=== PATIENT | female | born 1940 | race Caucasian/White ===

== ENCOUNTER → 2017-01-16 | Outpatient (CLI) | payer OTHER ==
[~2017-01-16] MED LIST: CELEBREX 200 M200 M1 PO; LISINOPRIL20 MG PO; NEXIUM40 MG PO; VITAMIN D2000 UNI1 PO; ZETIA10 MG PO
== END ==
LOC: RAD 09:12
DX: S09.90XA Unspecified injury of head, initial encounter (principal); M47.896 Other spondylosis, lumbar region; X58.XXXA Exposure to other specified factors, initial encounter; Y93.89 Activity, other specified; Y92.89 Other specified places as the place of occurrence of the external cause; Y99.8 Other external cause status

== ENCOUNTER → 2017-06-03 | Outpatient (CLI) | payer OTHER ==
[~2017-06-03] VITALS: Ht 165.1 cm; Wt 59.4 kg
[~2017-06-03] MED LIST changes: +ASPIR 8181 MG PO; +ASPIR-TRIN325 MG PO; +CILOSTAZOL 100100 M1 PO; +LANSOPRAZOLE30 MG PO; +LIVALO4 MG PO; +PLAVIX 75 MG TA75 M1 PO; +TOPROL XL25 MG PO
--- NOTE | ~2017-06-03 | P ---
[facility] [place] [address] PROCEDURE REPORT Name: NADINE ROSS Room #: REG [facility] Alice#: [id number] Admission: 06/03/17 Attend Phys: Donny Green Discharge: Date of : 38 Report #: [id number] THIS REPORT FOR: //name// CC: Donny Choe DO DATE OF SERVICE: 06/03/2017 PROCEDURE PERFORMED: Flexible sigmoidoscopy with biopsies and APC cautery. HISTORY OF PRESENT ILLNESS: The patient is a 76-year-old female who underwent a colonoscopy by myself in 2014, in which a large sessile polyp was noted in the upper rectum, which came back as a tubular adenoma. She has now had repeat flexible sigmoidoscopy every 6 months because of recurrent adenomatous tissue on biopsies from the previous polypectomy site. Of note, the site was tattooed and it is at 20 cm from the anal canal. Plan is for repeat flexible sigmoidoscopy today with APC cautery. DESCRIPTION OF PROCEDURE: The risks and benefits of the procedure were explained to the patient, those risks including but not limited to bleeding, perforation, the risk of sedation. She understood these risks and gave informed consent. Sedation was given using propofol per anesthesia. Next, a digital rectal exam was initially performed, which was normal. Next, using a standard [employer] colonoscope, the scope was placed in the patient's anus and advanced under direct vision into the upper rectum at which point, the previous tattoo and polypectomy site was noted. This appears to be well healed with no obvious adenomatous tissue. Several biopsies in this area were obtained. Next, I proceeded with APC cautery of the area. There was no evidence of bleeding after APC cautery. The remaining rectum was normal. The scope was then withdrawn and the procedure terminated. The patient tolerated the procedure well. IMPRESSION: 1. Previous polypectomy site noted. Biopsies obtained and area was treated with APC cautery today. 2. Otherwise, normal rectum. RECOMMENDATIONS: 1. Await biopsy results. 2. If biopsies show adenomatous changes, consider repeat flexible sigmoidoscopy in 6 months. If there is no adenomatous change, then would consider a repeat full colonoscopy in a year. [address] [address] PROCEDURE REPORT Name: NADINE ROSS Room #: REG [facility] Jenkins#: [id number] Admission: 06/03/17 Attend Phys: Donny Green Discharge: Date of : 38 Report #: [id number] Thank you for allowing me to participate in her care. <ELECTRONICALLY SIGNED> By: Donny Brambila MD 06/05/17 0856 0947 1001 Donny Brambila MD /nt
--- NOTE | ~2017-06-03 | S ---
[facility] [place] [address] SURGICAL PATH RPT PROCEDURE Name: NADINE VANEGAS Room #: REG [facility] M.R.#: [id number] Admission: 06/03/17 Date of : 38 Discharge: Report #: [id number] Path Case #: [id number] PATHOLOGY REPORT COLLECTION DATE: 06/03/2017 RECEIVED DATE: 06/03/2017 SUBMITTING PHYS: Dr. Donny Brambila OTHER PHYS: Dr. Felipe Choe SPECIMEN(S) RECEIVED: A.Rectum bx previous polypectomy site * * * * * * * * * * * * FINAL DIAGNOSIS: Large intestinal mucosa, previous polypectomy site rectum, endoscopic biopsy: - Reactive hyperplastic changes. - Negative for dysplasia or malignancy. (IUV:pit; 06/04/2017) PATHOLOGIST: Latoya Spangler M.D. REPORT ELECTRONICALLY SIGNED BY: Latoya Spangler M.D. DATE/TIME: 06/04/2017 16:59 * * * * * * * * * * * * GROSS PATHOLOGY: Received in formalin labeled "Nadine Vanegas, previous polypectomy site rectum BX," are 3 segments of martinez soft tissue measuring 0.9 x 0.6 x 0.2 cm in aggregate dimensions and ranging from 0.3 to 0.4 cm in maximum dimension. The specimen is submitted entirely in cassette A1. (TSD; 06/03/2017) CLINICAL HISTORY: Hx large tubular adenoma INITIAL CPT CODE(S): A; 76994 Professional services performed by [facility] at [facility] [address] [place] [address] Technical services performed by [facility] at [address] [place] [address]. [facility] [address] [place] [address] SURGICAL PATH RPT PROCEDURE Name: NADINE VANEGAS Room #: REG [facility] Jenkins#: [id number] Admission: 06/03/17 Date of : 38 Discharge: Report #: [id number] Path Case #: [id number] [address] PHONE: [phone] DIRECTOR: Vineet Godinez M.D. * * * END OF REPORT * * *
== END ==
LOC: GI 05-29 14:22
DX: Z09 Encounter for follow-up examination after completed treatment for conditions other than malignant neoplasm (principal); Z86.010 Personal history of colon polyps; I10 Essential (primary) hypertension; E78.5 Hyperlipidemia, unspecified; I73.9 Peripheral vascular disease, unspecified; K21.9 Gastro-esophageal reflux disease without esophagitis; M19.90 Unspecified osteoarthritis, unspecified site; M81.0 Age-related osteoporosis without current pathological fracture; Z98.890 Other specified postprocedural states
CPT/HCPCS: 62110; 62900

== ENCOUNTER → 2018-04-16 | Outpatient (CLI) | payer OTHER ==
--- NOTE | ~2018-04-16 | P ---
[facility] [place] [address] PROCEDURE REPORT Name: NADINE ROSS Room #: REG [facility].#: [id number] Admission: 04/16/18 ������������������ Attend Phys: Husam Bernal MD Discharge: ������������������ Date of : 39 Report #: [id number] THIS REPORT FOR: //name// CC: Abdiel Irvin PREOPERATIVE DIAGNOSIS: Palpitations. POSTOPERATIVE DIAGNOSIS: Palpitations. PROCEDURE: Implantation of an implantable loop recorder, CPT code 76444. HISTORY OF PRESENT ILLNESS: The patient is a 77-year-old who has worn cardiac monitors and continues to have palpitations is here for implantation of an implantable loop recorder. DESCRIPTION OF PROCEDURE: The patient underwent informed consent. We discussed the details of the procedure including the risks, which include but not limited to bleeding and infection. She understands these risks and is willing to proceed. The patient was prepped and draped in a sterile fashion. I injected lidocaine at the incision site. Incision was made and the device was injected under the skin. I placed an absorbable suture and placed surgical glue to the skin layer. A dressing was placed. There were no procedural complications and no significant bleeding. The implanted loop recorder was a [employer], model #3500, serial #[id number]. CONCLUSIONS: Successful implantation of an implantable loop recorder. ��������������������������������������������� ���������������������������������������� By: ��������������������������������������������� 1325 1403 MD corie Means
[2018-04-16 13:02] VITALS: BP 108/57
--- NOTE | 2018-04-16 13:22 | NUR ---
PATIENT GIVEN D/C INSTRUCTIONS AND DEVICE INSTRUCTIONS PER CARMINE WITH ST ELIZA, V/U, VSS, LOOP SITE C/D/I, STABLE FOR DISCHARGE
== END | disposition home or self-care (01) ==
LOC: CATH 09:47
DX: R00.2 Palpitations (principal); I25.10 Atherosclerotic heart disease of native coronary artery without angina pectoris; Z79.82 Long term (current) use of aspirin; Z79.899 Other long term (current) drug therapy

== ENCOUNTER → 2018-06-03 | Outpatient (CLI) | payer OTHER | LOC: CAT 13:06 | DX: G31.9 Degenerative disease of nervous system, unspecified (principal) ==

== ENCOUNTER → 2018-12-02 | Outpatient (CLI) | payer OTHER ==
[~2018-12-02] VITALS: Ht 160 cm; Wt 55.8 kg
[2018-12-02 07:03] LABS: HEMATOCRIT 32.4 % (37.0-47.0); HEMOGLOBIN 10.5 gm/dL (12.0-15.0); MCHC 32.4 g/dL (28.0-37.0); MCV 86.5 fL (80.0-100.0); RBC 3.74 mil/uL (4.20-5.00); RDW 14.3 % (10.5-14.5)
[2018-12-02 07:10] LABS: CALCIUM 10.2 mg/dL (8.5-10.1); CREATININE 0.9 mg/dL (0.6-1.0); POTASSIUM 3.9 mmol/L (3.5-5.1)
[2018-12-02 07:29] VITALS: BP 142/75
--- NOTE | 2018-12-02 08:36 | EKG ---
[place] [address] [facility] [place] [address] ELECTROCARDIOGRAM REPORT Name: NADINE ROSS [id number] ������������������ Admission: 12/02/18 ������������������ Attend Phys: Abdiel Frey MD, Discharge: ������������������ Date of : 38 Report #: [id number] ����������������������������������������������������������������� [id number] THIS REPORT FOR: //name// [facility] Test Date: 2018-12-02 Test Time: 06:58:48 Pat Name: NADINE ROSS Department: Room: Gender: F Rehabilitation Aide: JOSE : 1940 Requested By: Abdiel Frey Order Number: [id number] MD: Shar Mckeon Measurements Intervals [place] Rate: 78 P: 83 MS: 152 QRS: 49 QRSD: 86 T: 44 QT: 373 QTc: 425 Interpretive Statements Sinus rhythm No significant abnormality Compared to ECG 11/28/2017 07:07:46 No significant changes Electronically Signed On 12-02-2018 8:36:21 CDT by Shar Mckeon [email or web address] ��������������������������������������������� <ELECTRONICALLY SIGNED> ���������������������������������������� By: Shar Mckeon MD, [facility] ��������������������������������������������� 12/02/18 0836 D: 0958 Shar Mckeon MD, FAC /EPI
[2018-12-02 10:57] LABS: CALCIUM 10.1 mg/dL (8.5-10.1); CREATININE 0.8 mg/dL (0.6-1.0)
[2018-12-02 11:00] LABS: APTT 26.1 Seconds (24.5-32.8); PROTIME 10.1 Seconds (9.3-11.4)
[2018-12-02 11:03] LABS: ALBUMIN 3.4 g/dL (3.4-5.0); TOTAL BILIRUBIN 0.5 mg/dL (<0.1-1.0)
--- NOTE | 2018-12-02 12:30 | 2DMMODE ---
[facility] [address] [email or web address] [address] 2 D/M-MODE ECHOCARDIOGRAM Name: NADINE ROSS Room #: REG [facility]#: [id number] ������������� Admission: 12/02/18 ������������� Attend Phys: Abdiel Frey, Discharge: ��� ������������� ��� Date of : 38 Date of Service: 12/02/18 1230 �� Report #: [id number] �������� ��������������������������������������������[id number] THIS REPORT FOR: //name// APPROVED REPORT Study performed: 12/02/2018 11:19:53 EXAM: Comprehensive 2D, Doppler, and color-flow Echocardiogram Patient Location: [facility] Room #: 3 Status: routine BSA: 1.57 HR: 97 bpm BP: 142/75 mmHg Rhythm: NSR Other Information Study Quality: Adequate Indications Pre-Op CAD 2D Dimensions RVDd: 25.59 mm IVC: 15.00 mm Volumes Left Atrial Volume (Systole) Single Plane 4CH: 52.73 mL Single Plane 2CH: 28.35 mL LA ESV Index: 30.00 mL/m2 Aortic Valve AoV Peak Donald.: 2.18 m/s AO Peak Gr.: 18.99 mmHg Mitral Valve E/A Ratio: 0.7 MV Decel. Time: 316.58 ms MV E Max Donald.: 1.19 m/s MV A Donald.: 1.82 m/s MV PHT: 91.81 ms IVRT: 155.71 ms Pulmonary Vein [facility] [address] [place] [address] 2 D/M-MODE ECHOCARDIOGRAM Name: NADINE ROSS Room #: REG [facility].#: [id number] ������������� Admission: 12/02/18 ������������� Attend Phys: Abdiel Frey, Discharge: ��� ������������� ��� Date of : 38 Date of Service: 12/02/18 1230 �� Report #: [id number] �������� ��������������������������������������������[id number] P Vein S: 0.52 m/s P Vein A: 0.23 m/s P Vein D: 0.26 m/s P Vein A Dur.: 90.0 msec P Vein S/D Ratio: 2.00 Tricuspid Valve TR Peak Donald.: 3.03 m/s TR Peak Gr.: 36.65 mmHg PA Pressure: 42.00 mmHg Left Ventricle The left ventricle is normal size. There is normal left ventricular wall thickness. Left ventricular systolic function is hyperdynamic. LVEF is >70%. Grade I - abnormal relaxation pattern. Right Ventricle The right ventricle is normal size. The right ventricular systolic function is normal. Atria The left atrium size is normal. Right atrium size is normal. Aortic Valve The aortic valve is normal in structure. Aortic valve is calcified. No aortic regurgitation is present. There is no aortic valvular stenosis. Mitral Valve The mitral valve is normal in structure. Mild to moderate mitral regurgitation. No evidence of mitral valve stenosis. Tricuspid Valve The tricuspid valve is normal in structure. Unable to assess PA pressure. Pulmonic Valve The pulmonary valve is normal in structure. There is no pulmonic valvular regurgitation. Great Vessels The aortic root is normal in size. IVC is normal in size and collapses >50% with inspiration. Pericardium There is no pericardial effusion. <Conclusion> [facility] [address] [place] [address] 2 D/M-MODE ECHOCARDIOGRAM Name: NADINE ROSS Room #: [facility]#: [id number] ������������� Admission: 12/02/18 ������������� Attend Phys: Abdiel Frey, Discharge: ��� ������������� ��� Date of : 38 Date of Service: 12/02/18 1230 �� Report #: [id number] �������� ��������������������������������������������[id number] The left ventricle is normal size. Left ventricular systolic function is hyperdynamic. LVEF is >70%. Grade I - abnormal relaxation pattern. The right ventricle is normal size. The left atrium size is normal. The aortic valve is normal in structure. Aortic valve is calcified. There is no aortic valvular stenosis. Mild to moderate mitral regurgitation. The tricuspid valve is normal in structure. The aortic root is normal in size. There is no pericardial effusion. ��������������������������������������������� <ELECTRONICALLY SIGNED> ���������������������������������������� By: Abdiel Frey MD, [facility] ��������������������������������������������� 12/02/18 1230 1230 1230 Abdiel Frey MD, FACC /INF
--- NOTE | 2018-12-03 17:28 | CATHLAB ---
[facility] [address] [place] [place] [address] INVASIVE PROCEDURE REPORT Name: NADINE ROSS [facility] [id number] ������������� Admission: 12/02/18 ������������� Attend Phys: Abdiel Frey, Discharge: ��� ������������� ��� Date of : 38 Date of Service: 12/03/18 1727 �� Report #: [id number] �������� ��������������������������������������������[id number] THIS REPORT FOR: //name// APPROVED REPORT Study performed: 12/02/2018 07:59:54 Patient Details Patient Status: Out-Patient Room #: The patient is a 78 year-old female Event Personnel Abdiel Frey Multiplex Operator, Nell Stout, Eddie Ortez Penny, Wes RN, Robert Rivera RN RN, Juany Asencio RN printed circuit boards plasma etcher Performed Art Access - R femoral artery* 41820 Initial Mod Sed Same Phys/QHP Gr5y 377029 26843 Mod Sed Same Phys/QHP Ea 758748 Left Heart Cath w/or w/o Coronaries [id number] [facility] Renal Bilateral Peripheral Angiography [id number] CVRENALBIL Hemostasis w/ Mynx Indication Chest pain Procedure Narrative The patient was brought electively to the Cardiac Catheterization Laboratory and was prepped and draped in a sterile manner. The Right Groin^ was infiltrated with 1% Lidocaine subcutaneous anesthesia. A PINNACLE 6FR Sheath #[id number] sheath was inserted into the RFA^. Coronary angiography was performed using coronary diagnostic catheters. The right coronary system was accessed and visualized with a JR 4 catheter. The left coronary system was accessed and visualized with a JL 4 catheter. The left ventricle was accessed and visualized with a Pigtail catheter. Left ventriculogram was performed in YEPEZ projection. Pre-demployment femoral angiogram was performed . Hemostasis was obtained with manual pressure following sheath removal without any complications. The patient tolerated the procedure well and there were no complications associated with the procedure. There was no hematoma. Intraoperative Conscious Sedation Sedation start time: 08:30 Case end Time: 09:17 Fentanyl 100 mcg Versed [address] [address] INVASIVE PROCEDURE REPORT Name: NADINE ROSS [facility] [id number] ������������� Admission: 12/02/18 ������������� Attend Phys: Abdiel Frey, Discharge: ��� ������������� ��� Date of : 38 Date of Service: 12/03/18 1727 �� Report #: [id number] �������� ��������������������������������������������[id number] Fluoro Time: 3.25 minutes Dose: DAP 2598.00 cGycm2 300 mGy Contrast Type and Amount: Omnipaque 120 ml Hemodynamics The aortic pressure is 124/42 mmHg with a mean of 82 mmHg. The left ventricular pressure is 158/2 mmHg with a mean of mmHg. The left ventricular end diastolic pressure is 12 mmHg. Conclusion #1 normal left ventricular size and hyperdynamic LV function EF 60% #2 ostial left main stenosis of 70-80% brisk flow into the LAD and circumflex. Mildly calcified #3 LAD with proximal calcification mild disease throughout the LAD diagonal system no high-grade occlusive disease #4 circumflex OM high rising ramus branch mild disease proximal OM presumably stented widely patent nondominant moderate distribution #4 dominant right coronary artery with an eccentric mid vessel lesion 40-50% PDA and ELIAS well preserved with minimal irregularity #5 selective injection of right renal artery shows a 50% ostial lesion brisk flow #6 selective left renal artery injection shows minimal ostial disease Recommendations and plan: Continue aggressive risk factor modification. Will need intervention to left main which could be revascularization by bypass or left main stent. Long discussion with patient family and CV surgical consultation. Further recommendations to follow. Patient hemodynamically stable will follow post stent protocol and discharge later today metopic low has been restarted for cardioprotection. We'll make decision and proceed with intervention next week. ��������������������������������������������� <ELECTRONICALLY SIGNED> ���������������������������������������� By: Abdiel Frey MD, FACC ��������������������������������������������� 12/03/181726 26 26 Abdiel Frey MD, FACC /INF
--- NOTE | 2018-12-10 20:57 | HC ---
[facility] [place] [address] CONSULTATION Name: NADINE ROSS Room #: REG [facility]#: [id number] Admission: 12/02/18 ������������������ Attend Phys: Abdiel Frey MD, Discharge: ������������������ Date of : 38 Report #: [id number] THIS REPORT FOR: //name// CC: Abdiel Irvin DATE OF SERVICE: 12/02/2018 We were asked by Dr. Frey to see the patient. HISTORY OF PRESENT ILLNESS: The patient is a 78-year-old with left main coronary artery disease. The patient has a history of peripheral arterial occlusive disease and has had stents placed for superficial femoral artery occlusion that had presented with claudication. The patient has done generally well until this past year when she has had intermittent chest pain. The patient describes pain in the mid chest that radiates to the left arm. There is no particular inciting event. This can happen at rest or with exercise and the patient says she seldom has 2 or 3 days in a row where she does not have some sort of discomfort. Cardiac catheterization today demonstrates a left main coronary artery stenosis with an ostial left main lesion with a long left main and no involvement of the proximal LAD and circumflex. Left ventricular function appears satisfactory. Right coronary appears normal. PAST MEDICAL HISTORY: Significant for hypertension. The patient takes lisinopril. The patient also takes Plavix and Pletal for her vascular disease. The patient takes a beta carlos and Prilosec was ordered for what was thought to be a GI discomfort. ALLERGIES: None known. SOCIAL HISTORY: The patient is , avid traveler with her . Denies smoking but has a history of secondary smoke exposure in her youth. Occasional alcohol. FAMILY HISTORY: Mother of age 78 with kidney disease. Father had myocardial infarction at 65 and had stents placed and in his 80s. REVIEW OF SYSTEMS: Generally negative. CONSTITUTIONAL: The patient denies fever, chills, sleeping problems. HEENT: Denies headache, vision problems, hearing problems. RESPIRATORY: Denies shortness of breath or sputum production. CARDIAC: As mentioned, chest pain with radiation not classically exertional. SKIN: No rash or infection. [facility] [address] [place] [address] CONSULTATION Name: NADINE ROSS Room #: REG [facility].#: [id number] Admission: 12/02/18 ������������������ Attend Phys: Abdiel Frey MD, Discharge: ������������������ Date of : 38 Report #: [id number] ENDOCRINE: No tremor or goiter. GASTROINTESTINAL: No nausea, vomiting blood. GENITOURINARY: No urgency, frequency, blood. NEUROLOGIC: No motor or sensory dysfunction. PSYCHIATRIC: No depression, no anxiety. MUSCULOSKELETAL: Denies bone and joint issues but has had a right knee replacement. VASCULAR: Does admit to claudication in the left calf. IMMUNOLOGIC: No arthritides, lupoid rash. PHYSICAL EXAMINATION: GENERAL: The patient appears to be younger than her stated age. VITAL SIGNS: Blood pressure 142/75, heart rate 80, respiratory rate 17, O2 sat 98 on room air, temperature 97. HEENT: No scleral icterus, no arcus. NECK: No cervical masses or bruit. CHEST: Clear to auscultation. HEART: Rhythm regular, with a flow murmur right sternal border. ABDOMEN: Soft. No mass. EXTREMITIES: No clubbing, cyanosis or edema. I do not feel distal pulses. Popliteal pulses 2+ on the right and 0 on the left. No obvious saphenous vein problems. I have reviewed the coronary anatomy with the patient as has Dr. Frey. I have discussed the risks and details of surgery, risks include but are not limited to bleeding, infection, anesthesia risks, heart and lung problems, stroke and . Options and alternatives were reviewed in particular the option of left main stenting was discussed. For the details of this, I will defer to Dr. Frey, but he has indicated that this would be a reasonable approach. Dr. Frey and I will confer and ultimately make a recommendation and then allow the patient to make a decision. Thank you for the consult. ��������������������������������������������� <ELECTRONICALLY SIGNED> ���������������������������������������� By: Joesph Pablo MD ��������������������������������������������� 12/10/18 2057 1625 0149 Joesph Pablo MD /nt
== END | disposition home or self-care (01) ==
LOC: CATH 06:27
PROVIDERS: Internal Medicine Cardiovascular Disease; Surgery Vascular Surgery
DX: I25.10 Atherosclerotic heart disease of native coronary artery without angina pectoris (principal); I70.1 Atherosclerosis of renal artery; I10 Essential (primary) hypertension; K21.9 Gastro-esophageal reflux disease without esophagitis; I73.9 Peripheral vascular disease, unspecified; E78.5 Hyperlipidemia, unspecified; M19.90 Unspecified osteoarthritis, unspecified site; M81.0 Age-related osteoporosis without current pathological fracture; Z96.651 Presence of right artificial knee joint; Z85.828 Personal history of other malignant neoplasm of skin; Z98.890 Other specified postprocedural states; Z82.49 Family history of ischemic heart disease and other diseases of the circulatory system; Z79.899 Other long term (current) drug therapy

== ENCOUNTER 2019-01-06 06:26 | Observation (INO) | payer OTHER ==
[~2019-01-06] VITALS: Ht 160 cm; Wt 55.8 kg
[2019-01-06] VITALS (13 sets, daily range): BP systolic 96–157; BP diastolic 53–84
[2019-01-06 07:37] LABS: CALCIUM 10.3 mg/dL (8.5-10.1); CREATININE 0.9 mg/dL (0.6-1.0)
[2019-01-06 07:47] LABS: APTT 26.4 Seconds (24.5-32.8); PROTIME 10.2 Seconds (9.3-11.4)
--- NOTE | 2019-01-06 07:49 | EKG ---
[place] [address] [facility] [place] [address] ELECTROCARDIOGRAM REPORT Name: NADINE ROSS [facility] #: [facility] [id number] Admission: 01/06/19 Attend Phys: Abdiel Frey MD, Discharge: Date of : 38 Report #: [id number] THIS REPORT FOR: //name// [facility] Test Date: 2019-01-06 Test Time: 07:14:15 Pat Name: NADINE ROSS Department: Room: Gender: F Sleep Medicine Physician: JASMINE : 1940 Requested By: Abdiel Frey Order Number: [id number] MD: Shar Mckeon Measurements Intervals [place] Rate: 73 P: 85 AL: 159 QRS: 50 QRSD: 85 T: 53 QT: 384 QTc: 424 Interpretive Statements Sinus rhythm Normal tracing Compared to ECG 12/02/2018 06:58:48 No significant changes Electronically Signed On 01-06-2019 7:49:22 CDT by Shar Mckeon [email or web address] <ELECTRONICALLY SIGNED> By: Shar Mckeon MD, [facility] 01/06/19 0749 0714 3 Shar Mckeon MD, FACC /EPI
--- NOTE | 2019-01-06 18:06 | NUR ---
ASSUMMED PT CARE AT APPROXIMATELY 0945. PT A&O X4. ASSESSMENT CHARTED. FALL PRECAUTIONS COMPLETE. PT'S VITAL SIGNS STABLE. PT DENIES CHEST PAIN. PT DENIES SOB. PT DENIES ACUTE PAIN. PT ADMISSION COMPLETE. PT POST-CATH PROCEDURE. PT'S R GROIN C/D/I, NO HEMATOMA. PT'S BEDREST COMPLETE. PT WALKS STEADY/INDEPENDENT. PT'S IV FLUIDS COMPLETE. PT STATED OCCASIONAL SOB. PT RECEIVED 1 L O2 PER COMFORT. PT VITAL SIGNS STABLE. PT O2 SAT STABLE. NORMAL RHYTHM. PT STATED THE SOB HAS DECREASED AND HAS IMPROVED. WILL CONTINUE TO MONITOR. PT SITTING COMFORTABLE IN BED. PT DENIES HAVING CONCERNS AT THIS MOMENT.
[2019-01-07 04:45] VITALS: BP 134/84
--- NOTE | 2019-01-07 05:17 | NUR ---
PT ALERT AND ORIENTED S/P CARDIAC CATH. GROIN SITE C/D/I. DENIES PAIN. VITALS STABLE. PT STABLE. DENIES N/V/D/ . POSSIBLE DC TODAY. WILL CONTINUE TO MONITOR.
[2019-01-07 05:32] LABS: HEMATOCRIT 30.2 % (37.0-47.0); MCH 28.2 pg (26.0-34.0); MCV 85.4 fL (80.0-100.0); RBC 3.54 mil/uL (4.20-5.00); WBC 6.1 thou/uL (4.0-11.0)
[2019-01-07 06:04] LABS: ALBUMIN 3.1 g/dL (3.4-5.0); ANION GAP 9 mmol/L (7-16); BUN 20 mg/dL (7-18); CALCIUM 10.2 mg/dL (8.5-10.1); CHLORIDE 107 mmol/L (98-107); CO2 25 mmol/L (21-32); CREATININE 0.8 mg/dL (0.6-1.0); GLUCOSE 88 mg/dL (74-106); POTASSIUM 4.3 mmol/L (3.5-5.1); SGOT 16 U/L (15-37); SGPT 11 U/L (30-65); SODIUM 141 mmol/L (136-145); TOTAL BILIRUBIN 0.7 mg/dL (<0.1-1.0); TOTAL PROTEIN 6.8 g/dL (6.4-8.2); TROPONIN-I <0.06 ng/mL (<0.06)
[2019-01-07 07:34] VITALS: BP 153/72
[2019-01-07] MEDS ORDERED: BRILINTA90 MG PO (07:43)
[2019-01-07] MEDS ORDERED: ASPIR 8181 MG PO (07:43)
--- NOTE | 2019-01-07 08:04 | EKG ---
[place] [address] [facility] [place] [address] ELECTROCARDIOGRAM REPORT Name: NADINE ROSS Room #: 213-[facility] M.R.#: [id number] Admission: 01/06/19 Attend Phys: Abdiel Frey MD, Discharge: Date of : 38 Report #: [id number] THIS REPORT FOR: //name// [facility] Test Date: 2019-01-07 Test Time: 07:04:58 Pat Name: NADINE ROSS Department: Room: 213 P Gender: F Astronautical Engineer: JASMINE : 1940 Requested By: Dorothy Desai Order Number: [id number] MD: Shar Mckeon Measurements Intervals [place] Rate: 76 P: 76 CT: 157 QRS: 55 QRSD: 88 T: 45 QT: 374 QTc: 421 Interpretive Statements Sinus rhythm No significant abnormality Compared to ECG 01/06/2019 07:14:15 No significant changes Electronically Signed On 01-07-2019 8:04:26 CDT by Shar Mckeon [email or web address] <ELECTRONICALLY SIGNED> By: Shar Mckeon MD, [facility] 01/07/19803 3 3 Shar Mckeon MD, FACC /EPI
[2019-01-07 08:20] VITALS: BP 134/84
--- NOTE | 2019-01-07 09:42 | NUR ---
ASSUMMED PT CARE AT APPROXIMATELY 0700. PT A&O X4. ASSESSMENT CHARTED. FALL PRECAUTIONS IN PLACE. PT DENIES HAVING CHEST PAIN. PT DENIES HAVING SOB. PT DENIES HAVING ACUTE PAIN. VITAL SIGNS STABLE. PT DISCHARGING HOME C . PT AND RECEIVED DISCHARGE EDUCATION AND INSTRUCTIONS. PT AND STATED UNDERSTANDING AND DENIED HAVING FURTHER QUESTIONS. PT'S GROIN SITE CLEAN AND DRY. NO HEMATOMA. AWAITING FOR HOSPITAL TRANSPORT TO ARRIVE TO WHEELCHAIR PT OFF UNIT. PT DENIES HAVING CONCERNS.
--- NOTE | 2019-01-14 17:57 | CATHLAB ---
[facility] [address] [place] [address] INVASIVE PROCEDURE REPORT Name: NADINE ROSS Room #: 213-P [facility] IN [facility]#: [id number] Admission: 01/06/19 Attend Phys: Abdiel Frey, Discharge: 01/07/19 Date of : 38 Report #: [id number] THIS REPORT FOR: //name// ADDENDUM APPROVED REPORT Study performed: 01/06/2019 07:52:15 Patient Details Patient Status: Out-Patient Room #: The patient is a 78 year-old female Event Personnel Abdiel Frey Tobacco Flavorer, Juany Asencio RN RN, Dai Redmond RTR, Marcos Drummond Sherra RTR Monitor Procedures Performed Art Access - R femoral artery* JASON Place w/wo Plasty Single Left Main [id number] 03398 Initial Mod Sed Same Phys/QHP Gr5y 339567 33365 Mod Sed Same Phys/QHP Ea 462984 Hemostasis w/ Mynx Indication Chest pain Procedure Narrative The Right Groin^ was infiltrated with 1% Lidocaine subcutaneous anesthesia. The left coronary system was accessed and visualized with a LAUNCHER 6FR EBU 3.5 #[id number] catheter. Closure device was deployed with a 6 Fr MYNXGRIP 6/7F #[id number]. Hemostasis was obtained with manual pressure following sheath removal without any complications. The patient tolerated the procedure well and there were no complications associated with the procedure. There was no hematoma. Intraoperative Conscious Sedation Sedation start time: 8:18 Case end Time: 9:18 Fentanyl 100 mcg Versed 1 mg Fluoro Time: 12.44 minutes Dose: DAP 5248.50 cGycm2 739 mGy Contrast Type and Amount: Omnipaque 165 ml Hemodynamics The aortic pressure is 175/80 mmHg with a mean of 76 mmHg. [facility] [place] [address] INVASIVE PROCEDURE REPORT Name: NADINE ROSS Room #: 213-P [facility] IN M.R.#: [id number] Admission: 01/06/19 Attend Phys: Abdiel ElizabethDawood Tk, Discharge: 01/07/19 Date of : 39 Report #: [id number] PCI Technique Lesion Percutaneous coronary intervention was performed on the LM. A LAUNCHER 6FR EBU 3.5 #[id number] Guide Catheter was used to engage the ostium. A Luge Wire .014 x 182CM #[id number] Interventional Guidewire was used to cross the lesion. BALLOON DILATION A Balloon catheter Sprinter OTW 2.5 x 10 #[id number] was inserted and inflated up to 12.00atm for 11seconds. Additional Inflation: 14.00atm for 14seconds. STENT DEPLOYMENT A drug-eluting stent RESOLUTE ADRIANNE OTW 3.0 X 8 #[id number] was inserted and inflated up to 16.00atm for 17seconds. Additional Inflation: 18.00atm for 15seconds. POST STENT DEPLOYMENT BALLOON DILATION A Balloon catheter TREK NC RX 3.25 X 8 #[id number] was inserted and inflated up to 20.00atm for 21seconds. Additional Inflation: 22.00atm for 15seconds. NC TREK 3.50x12 16ATM 18/sec,18ATM 16/sec NC Euprhora 3.75x8 18ATM 23/sec,18ATM 16/sec Conclusion #1 successful PTCA stent of a high-grade ostial left main lesion placement of a 30 by 8 resolute drug-eluting stent postdilated 3.85 mm yielding essentially 0% residual and JN grade 3 flow into LAD and diagonal system. Recommendations and plan: We'll continue aggressive risk factor modification. Dual antiplatelet therapy to continue indefinitely. Vascular closure utilized without complication. To CCU to follow post stent protocol. Hemodynamically stable. Addendum this was a staged left main stent coronary angiography had previously been completed on the prior study. <ELECTRONICALLY SIGNED> By: Abdiel Frey MD, FACC 01/14/191755 55 55 Abdiel Frey MD, FACC /INF
--- NOTE | 2019-01-25 09:12 | D ---
[facility] [place] [address] [place] [address] DISCHARGE SUMMARY Name: NADINE ROSS Room #: 213-P [facility]RSALAN Ambriz MDawoodRDawood#: [id number] Admission: 01/06/19 Attend Phys: Abdiel Frey MD, Discharge: 01/07/19 Date of : 39 Report #: [id number] THIS REPORT FOR: //name// CC: Abdiel Frey Isha Albaro DATE OF SERVICE: 01/07/2019 HOSPITAL COURSE: A 78-year-old female who is admitted for an intervention to left main. She had an 80% left main lesion at catheterization a couple of weeks ago. She was seen by CV surgical consultation and myself. There were options for either in this setting. She, however, had mildly diseased vessels. She was improved with the beta carlos therapy only and went to [facility] against medical advice, but came back uneventfully. Proceeded with placement of a 3.0 x 8 Resolute Richards medicated stent. This was postdilated to 3.8 mm with a 3.75 noncompliant balloon. An excellent result was obtained. No evidence of dissection or thrombus. The patient tolerated well. Laboratory work is stable. She is up and ambulating. There are no groin issues. She will be discharged to home on dual-antiplatelet therapy for at least 1 year. I have initiated Brilinta and stopped her Plavix, so that will be 90 mg p.o. b.i.d. with baby aspirin. We will continue Livalo 4, Zetia 10, metoprolol 25, lisinopril 20. No lifting for 48 hours and lying in tub, Jacuzzi or teague for a week. She previously had been on Plavix and Pletal combination for some peripheral vascular disease. I have discontinued those for clarification. DISCHARGE DIAGNOSES: 1. Coronary artery disease, successful percutaneous transluminal coronary angioplasty stent of high-grade ostial left main lesion. 2. Hypertension. 3. Hypercholesterolemia. 4. Peripheral vascular disease. RECOMMENDATIONS AND PLAN: As stated above. Followup is arranged. <ELECTRONICALLY SIGNED> By: Abdiel Frey MD, FACC 01/25/19 0912 0825 1757 Abdiel Frey MD, FACC /nt
== END 2019-01-07 10:24 | disposition home or self-care (01) ==
LOC: CATH 06:26 → 2N 13:03 → CATH 13:07 → ENTRNSPT 01-07 09:35 → EDTRNSPTSTS 01-07 09:42 → 2N 01-07 10:24
PROVIDERS: Nurse Practitioner Adult Health; ADMIT Internal Medicine Cardiovascular Disease
DX: I25.10 Atherosclerotic heart disease of native coronary artery without angina pectoris (principal); I10 Essential (primary) hypertension; E78.00 Pure hypercholesterolemia, unspecified; I73.9 Peripheral vascular disease, unspecified

== ENCOUNTER → 2019-04-15 | Outpatient (CLI) | payer OTHER ==
[~2019-04-15] MED LIST changes: +BRILINTA90 MG PO
== END ==
LOC: SJCVCIMAG 11:09
DX: I70.203 Unspecified atherosclerosis of native arteries of extremities, bilateral legs (principal); R00.1 Bradycardia, unspecified; I65.29 Occlusion and stenosis of unspecified carotid artery; I25.10 Atherosclerotic heart disease of native coronary artery without angina pectoris; I10 Essential (primary) hypertension; E78.00 Pure hypercholesterolemia, unspecified; K21.9 Gastro-esophageal reflux disease without esophagitis; M19.90 Unspecified osteoarthritis, unspecified site; Z95.820 Peripheral vascular angioplasty status with implants and grafts

== ENCOUNTER → 2019-04-19 | Outpatient (CLI) | payer OTHER | LOC: SJCVC 09:34 | PROVIDERS: ATTEND Internal Medicine Cardiovascular Disease | DX: Z45.09 Encounter for adjustment and management of other cardiac device (principal); I73.9 Peripheral vascular disease, unspecified; I25.10 Atherosclerotic heart disease of native coronary artery without angina pectoris; G47.33 Obstructive sleep apnea (adult) (pediatric); K21.9 Gastro-esophageal reflux disease without esophagitis; E78.5 Hyperlipidemia, unspecified; Z68.21 Body mass index [BMI] 21.0-21.9, adult; M19.90 Unspecified osteoarthritis, unspecified site ==

== ENCOUNTER → 2019-06-23 | Outpatient (CLI) | payer OTHER | LOC: RAD 12:05 | DX: S52.592A Other fractures of lower end of left radius, initial encounter for closed fracture (principal); X58.XXXA Exposure to other specified factors, initial encounter; Y93.89 Activity, other specified; Y92.89 Other specified places as the place of occurrence of the external cause; Y99.8 Other external cause status ==

== ENCOUNTER → 2019-10-11 | Outpatient (CLI) | payer OTHER | LOC: SJCVCIMAG 10:41 | PROVIDERS: ATTEND Internal Medicine Cardiovascular Disease | DX: I73.9 Peripheral vascular disease, unspecified (principal); I25.10 Atherosclerotic heart disease of native coronary artery without angina pectoris; I10 Essential (primary) hypertension; E78.00 Pure hypercholesterolemia, unspecified; Z79.899 Other long term (current) drug therapy ==

== ENCOUNTER → 2019-10-13 | Outpatient (CLI) | payer OTHER | LOC: SJCVC 10:19 | PROVIDERS: ATTEND Internal Medicine Cardiovascular Disease | DX: R00.1 Bradycardia, unspecified (principal); I25.10 Atherosclerotic heart disease of native coronary artery without angina pectoris; I73.9 Peripheral vascular disease, unspecified; I10 Essential (primary) hypertension; E78.5 Hyperlipidemia, unspecified; E78.00 Pure hypercholesterolemia, unspecified; M19.90 Unspecified osteoarthritis, unspecified site; Z79.82 Long term (current) use of aspirin; Z79.899 Other long term (current) drug therapy; Z82.49 Family history of ischemic heart disease and other diseases of the circulatory system ==

== ENCOUNTER → 2019-10-18 | Outpatient (CLI) | payer OTHER | LOC: SJCVCIMAG 08:37 | PROVIDERS: ATTEND Internal Medicine Cardiovascular Disease | DX: I08.0 Rheumatic disorders of both mitral and aortic valves (principal); I25.10 Atherosclerotic heart disease of native coronary artery without angina pectoris; I73.9 Peripheral vascular disease, unspecified; I10 Essential (primary) hypertension; E78.5 Hyperlipidemia, unspecified; Z79.82 Long term (current) use of aspirin; Z79.899 Other long term (current) drug therapy ==

== ENCOUNTER → 2020-04-24 | Outpatient (CLI) | payer OTHER ==
[~2020-04-24] MED LIST changes: +ZANAFLEX2 M1 PO
== END ==
LOC: SJCVCIMAG 07:15
PROVIDERS: ATTEND Nuclear Medicine Nuclear Cardiology
DX: I70.293 Other atherosclerosis of native arteries of extremities, bilateral legs (principal); R94.31 Abnormal electrocardiogram [ECG] [EKG]; I77.9 Disorder of arteries and arterioles, unspecified; I25.10 Atherosclerotic heart disease of native coronary artery without angina pectoris; N28.9 Disorder of kidney and ureter, unspecified; E78.5 Hyperlipidemia, unspecified; I10 Essential (primary) hypertension; E78.00 Pure hypercholesterolemia, unspecified; M19.90 Unspecified osteoarthritis, unspecified site; R07.9 Chest pain, unspecified; K21.9 Gastro-esophageal reflux disease without esophagitis; Z95.820 Peripheral vascular angioplasty status with implants and grafts; Z98.890 Other specified postprocedural states; Z82.49 Family history of ischemic heart disease and other diseases of the circulatory system; Z79.82 Long term (current) use of aspirin; Z79.899 Other long term (current) drug therapy

== ENCOUNTER → 2020-04-27 | Outpatient (CLI) | payer OTHER ==
[~2020-04-27] VITALS: Ht 160 cm; Wt 55.8 kg
[2020-04-27 07:12] VITALS: BP 140/69
[2020-04-27 07:30] LABS: HEMATOCRIT 35.6 % (37.0-47.0); HEMOGLOBIN 11.5 gm/dL (12.0-15.0); MCH 29.6 pg (26.0-34.0); MCHC 32.4 g/dL (28.0-37.0); MCV 91.3 fL (80.0-100.0); RBC 3.9 mil/uL (4.20-5.00); RDW 13.8 % (10.5-14.5); WBC 6.3 thou/uL (4.0-11.0)
[2020-04-27 07:56] LABS: CALCIUM 10.1 mg/dL (8.5-10.1); POTASSIUM 4.3 mmol/L (3.5-5.1)
--- NOTE | 2020-04-30 10:31 | CATHLAB ---
[facility] [place] [address] [place] [address] INVASIVE PROCEDURE REPORT Name: NADINE ROSS Room #: REG [place] [facility].#: [id number] Admission: 04/27/20 Attend Phys: Abdiel Frey MD, Discharge: Date of : 39 Report #: [id number] THIS REPORT FOR: cc: Isha Irvin DNP, Mary E. DNP Mancuso, Gerald M. MD [facility] ~ APPROVED REPORT Study performed: 04/27/2020 07:33:34 Patient Details The patient is a 79 year-old female Event Personnel Abdiel Frey Tassel Snipper, Cheikh Stevens RN RN, Dai Redmond RTR, KADI Crouch, María Arthur Monitor Procedures Performed Art Access - R femoral artery* Art Access - R femoral artery* Left Heart Cath w/or w/o Coronaries [id number] [facility] [address] Initial Mod Sed Same Phys/QHP Gr5y 895277 70961 Mod Sed Same Phys/QHP Ea 171595 Hemostasis w/ Mynx Indication Chest pain Procedure Narrative The Right Groin^ was infiltrated with subcutaneous anesthesia. A PINNACLE 6FR Sheath #[id number] sheath was inserted into the RFA 6X11^. Coronary angiography was performed using coronary diagnostic catheters. The right coronary system was accessed and visualized with a JR4 catheter. The left coronary system was accessed and visualized with a JL4 catheter. The left ventricle was accessed and visualized with a STR PIG catheter. Left ventriculogram was performed in 30 degree projection. There was no hematoma. Intraoperative Conscious Sedation Sedation start time: 858 Case end Time: 929 Fentanyl 25 mcg Versed 1 mg Fluoro Time: 2.20 minutes Dose: DAP 2235.90 cGycm2 283 mGy Contrast Type and Amount: Omnipaque [address] [facility] [place] [address] INVASIVE PROCEDURE REPORT Name: VANDANANADINEKENDALL BAILEY Room #: [facility]#: [id number] Admission: 04/27/20 Attend Phys: Abdiel Frey, Discharge: Date of : 39 Report #: [id number] Hemodynamics The aortic pressure is 165/73 mmHg with a mean of 100 mmHg. The left ventricular pressure is 166/4 mmHg with a mean of mmHg. The left ventricular end diastolic pressure is 19 mmHg. Conclusion #1. Normal left ventricular size and systolic function EF 55% #2 previously placed left main stent remains widely patent with minimal restenosis. Giving rise to LAD and circumflex. #3 LAD with mild diffuse disease proximal calcification is noted it extends around the apex but is a small attenuated vessel distally. No high-grade occlusive disease. #4 circumflex OM nondominant with mild disease previously placed proximal mid stent widely patent. #5 dominant right coronary artery with an eccentric calcified mid vessel 30 to 40% lesion PDA ELIAS preserved no occlusive disease Recommendations and plan: Continue aggressive risk factor modification no indication for coronary intervention. Previously placed left main stent circumflex stent are widely patent. <ELECTRONICALLY SIGNED> By: Abdiel Frey MD, FACC 04/30/20 1030 1030 1030 Abdiel Frey MD, FACC /INF
== END | disposition home or self-care (01) ==
LOC: CATH 06:29
PROVIDERS: ATTEND Internal Medicine Cardiovascular Disease
DX: I25.10 Atherosclerotic heart disease of native coronary artery without angina pectoris (principal); R07.89 Other chest pain; I73.9 Peripheral vascular disease, unspecified; E78.00 Pure hypercholesterolemia, unspecified; I65.23 Occlusion and stenosis of bilateral carotid arteries; I10 Essential (primary) hypertension; M19.90 Unspecified osteoarthritis, unspecified site; I47.1 Supraventricular tachycardia; Z98.890 Other specified postprocedural states; Z96.651 Presence of right artificial knee joint

== ENCOUNTER → 2020-11-20 | Outpatient (CLI) | payer OTHER | LOC: SJCVCIMAG 08:07 | PROVIDERS: ATTEND Nuclear Medicine Nuclear Cardiology | DX: I65.23 Occlusion and stenosis of bilateral carotid arteries (principal); I70.201 Unspecified atherosclerosis of native arteries of extremities, right leg; I25.10 Atherosclerotic heart disease of native coronary artery without angina pectoris; I77.9 Disorder of arteries and arterioles, unspecified; I10 Essential (primary) hypertension; N28.9 Disorder of kidney and ureter, unspecified; E78.5 Hyperlipidemia, unspecified; G47.33 Obstructive sleep apnea (adult) (pediatric); M19.90 Unspecified osteoarthritis, unspecified site; E78.00 Pure hypercholesterolemia, unspecified; Z79.82 Long term (current) use of aspirin; Z79.899 Other long term (current) drug therapy; Z82.49 Family history of ischemic heart disease and other diseases of the circulatory system ==

== ENCOUNTER 2020-12-28 22:57 | Inpatient (IN) | payer OTHER ==
[~2020-12-28] VITALS: Ht 160 cm; Wt 54.9 kg
[2020-12-28 23:02] VITALS: BP 120/53
[2020-12-28 23:28] LABS: ABSOLUTE NEUTROPHILS 9.1 thou/uL (1.4-8.2); BASOPHILS 0.8 % (0.0-2.0); EOSINOPHILS 0.5 % (0.0-3.0); HEMATOCRIT 34.2 % (37.0-47.0); HEMOGLOBIN 11.3 gm/dL (12.0-15.0); LYMPHOCYTES 10.1 % (24.0-44.0); MCH 30.2 pg (26.0-34.0); MCHC 33.2 g/dL (28.0-37.0); MONOCYTES 8.8 % (1.0-8.0); PLATELET COUNT 274 thou/uL (150-400); POLYS 79.8 % (36.0-66.0); RBC 3.76 mil/uL (4.20-5.00); RDW 14.4 % (10.5-14.5); WBC 11.4 thou/uL (4.0-11.0)
[2020-12-28 23:35] LABS: CALCIUM 9.8 mg/dL (8.5-10.1); CREATININE 1.8 mg/dL (0.6-1.0)
[2020-12-28 23:46] LABS: ALBUMIN 3.5 g/dL (3.4-5.0); MAGNESIUM 1.9 mg/dL (1.8-2.4); TOTAL BILIRUBIN 0.4 mg/dL (0.2-1.0); TOTAL PROTEIN 7.1 g/dL (6.4-8.2)
[2020-12-29] VITALS (8 sets, daily range): BP systolic 118–148; BP diastolic 59–94
[2020-12-29 00:56] LABS: INR 1.01
[2020-12-29 00:59] LABS: APTT < 20.0 Seconds (24.5-32.8)
--- NOTE | 2020-12-29 04:59 | NUR ---
ADMITTED THIS PATIENT FROM THE EMERGENCY AROUND 0230AM.PATIENT IS ALERT IS ALERT AND ORIENTED X4.ON ROOM AIR BREATHING SPONTANEOUSLY.NOT IN DISTRESS.ADMISSION COMPLETED.MONITOR SHOWS SINUS RYTHM.ALL NEEDS ATTENDED.
[2020-12-29 11:40] LABS: CALCIUM 9.1 mg/dL (8.5-10.1); CREATININE 0.9 mg/dL (0.6-1.0); POTASSIUM 3.9 mmol/L (3.5-5.1)
--- NOTE | 2020-12-29 12:50 | 2DMMODE ---
[facility] [address] [address] D/M-MODE ECHOCARDIOGRAM Name: NADINE ROSS Room #: 218-P ADM IN M.R.#: [id number] Admission: 12/29/20 Attend Phys: Simone Stacy MD Discharge: Date of : 39 Report #: [id number] THIS REPORT FOR: cc: Isha Irvin DNP, Mary E. DNP Couchonnal, Luis F. MD ~ APPROVED REPORT Study performed: 12/29/2020 09:28:53 EXAM: Comprehensive 2D, Doppler, and color-flow Echocardiogram Patient Location: In-Patient Room #: 218 Status: routine BSA: 1.60 HR: 80 bpm Rhythm: NSR Other Information Study Quality: Adequate Indications Syncope 2D Dimensions IVSd: 12.47 (7-11mm) LVOT Diam: 20.88 (18-24mm) LVDd: 35.53 mm PWd: 11.23 (7-11mm) LVDs: 20.88 (25-40mm) Left Atrium: 39.81 (27-40mm) Aortic Root: 30.10 mm Volumes Left Atrial Volume (Systole) Single Plane 4CH: 32.43 mL Single Plane 2CH: 36.42 mL Aortic Valve AoV Peak Donald.: 2.40 m/s AO Peak Gr.: 23.13 mmHg LVOT Max P.87 mmHg AO Mean Gr.: 11.89 mmHg AO V2 Mean: 1.60 m/s LVOT Max V: 1.10 m/s AO V2 VTI: 51.55 cm KALEB Vmax: 1.57 cm2 [facility] [address] [address] D/M-MODE ECHOCARDIOGRAM Name: NADINE ROSS Room #: 218-P [facility] IN [facility].#: [id number] Admission: 12/29/20 Attend Phys: Simone Stacy MD Discharge: Date of : 39 Report #: [id number] Mitral Valve E/A Ratio: 0.8 MV Decel. Time: 327.05 ms MV E Max Donald.: 1.17 m/s MV A Donald.: 1.43 m/s MV PHT: 94.84 ms Pulmonary Valve PV Peak Donald.: 0.96 m/s PV Peak Gr.: 3.72 mmHg Tricuspid Valve TR Peak Donald.: 3.34 m/s TR Peak Gr.: 44.64 mmHg Left Ventricle The left ventricle is normal size. Mild concentric left ventricular hypertrophy. The left ventricular systolic function is normal. The left ventricular ejection fraction is within the normal range. LVEF is 60%. Grade I - abnormal relaxation pattern. Right Ventricle The right ventricle is normal size. The right ventricular systolic function is normal. Atria The left atrium size is normal. The right atrium size is normal. Aortic Valve Aortic valve is calcified but has adequate excursion. No aortic regurgitation is present. Very mild valvular aortic stenosis. Mitral Valve Mitral valve leaflets are thickened. The mitral valve is mildly thickened but opens well. Mild to moderate mitral regurgitation. No evidence of mitral valve stenosis. Tricuspid Valve The tricuspid valve is normal in structure. Mild tricuspid regurgitation. Estimated PAP 50 mmHg. Pulmonic Valve The pulmonary valve is normal in structure. Mild pulmonic regurgitation. [facility] [address] [address] 2 D/M-MODE ECHOCARDIOGRAM Name: NADINE ROSS Room #: 218-P [facility] IN .R.#: [id number] Admission: 12/29/20 Attend Phys: Simone Stacy MD Discharge: Date of : 39 Report #: [id number] Great Vessels The aortic root is normal in size. IVC is normal in size and collapses >50% with inspiration. Pericardium There is no pericardial effusion. <Conclusion> The left ventricle is normal size. Mild concentric left ventricular hypertrophy. The left ventricular systolic function is normal. The left ventricular ejection fraction is within the normal range. LVEF is 60%. The right ventricle is normal size. Aortic valve is calcified but has adequate excursion. No aortic regurgitation is present. Very mild valvular aortic stenosis. Mitral valve leaflets are thickened. The mitral valve is mildly thickened but opens well. Mild to moderate mitral regurgitation. The tricuspid valve is normal in structure. There is no pericardial effusion. <ELECTRONICALLY SIGNED> By: Husam Bernal MD 12/29/20 1249 1249 Husam Bernal MD /INF
--- NOTE | 2020-12-29 13:00 | EKG ---
[address] [address] ELECTROCARDIOGRAM REPORT Name: NADINE ROSS Room #: 218-P ADM IN M.R.#: [id number] Admission: 12/29/20 Attend Phys: Simone Stacy MD Discharge: Date of : 39 Report #: [id number] [facility] ED Test Date: 2020-12-28 Test Time: 23:49:08 Pat Name: NADINE ROSS Department: Room: 218 Gender: F Planner/Scheduler: kristine saab : 1940 Requested By: Gabino Herrera Order Number: [id number] MD: Husam Bernal Measurements Intervals [place] Rate: 76 P: 76 CO: 181 QRS: 49 QRSD: 89 T: 34 QT: 395 QTc: 445 Interpretive Statements Sinus rhythm Compared to ECG 01/07/2019 07:04:58 No significant changes Electronically Signed On 12-29-2020 13:00:20 CDT by Husam Bernal [email or web address] <ELECTRONICALLY SIGNED> By: Husam Bernal MD 12/29/20 1300 2349 2349 Husam Bernal MD /PATRICIA
--- NOTE | 2020-12-31 08:46 | NUR ---
RECEIVED OT EVALUATION ORDER. PATIENT DISCHARGED PRIOR TO OT BEING INITIATED.
== END 2020-12-29 13:43 | disposition home or self-care (01) | DRG 682 ==
LOC: ER 22:57 → EROBS 12-29 01:05 → 2N 12-29 02:19
PROVIDERS: Emergency Medicine; Nurse Practitioner; ADMIT Hospitalist; ATTEND Hospitalist
DX: N17.0 Acute kidney failure with tubular necrosis (principal); G93.41 Metabolic encephalopathy; Z20.822 Contact with and (suspected) exposure to COVID-19; I25.10 Atherosclerotic heart disease of native coronary artery without angina pectoris; I73.9 Peripheral vascular disease, unspecified; I10 Essential (primary) hypertension; K21.9 Gastro-esophageal reflux disease without esophagitis; E78.5 Hyperlipidemia, unspecified; I65.29 Occlusion and stenosis of unspecified carotid artery; G47.33 Obstructive sleep apnea (adult) (pediatric); Z96.651 Presence of right artificial knee joint; M19.90 Unspecified osteoarthritis, unspecified site; M81.0 Age-related osteoporosis without current pathological fracture; Z95.820 Peripheral vascular angioplasty status with implants and grafts; Z82.49 Family history of ischemic heart disease and other diseases of the circulatory system; Z84.1 Family history of disorders of kidney and ureter; Z79.82 Long term (current) use of aspirin; Z79.899 Other long term (current) drug therapy; Z95.5 Presence of coronary angioplasty implant and graft; E86.0 Dehydration
CPT/HCPCS: 10081

== ENCOUNTER → 2021-01-02 | Outpatient (CLI) | payer OTHER | LOC: SJCVC 14:28 | PROVIDERS: ATTEND Internal Medicine Cardiovascular Disease | DX: R00.1 Bradycardia, unspecified (principal); R55 Syncope and collapse; I25.10 Atherosclerotic heart disease of native coronary artery without angina pectoris; I73.9 Peripheral vascular disease, unspecified; Z79.82 Long term (current) use of aspirin; Z79.899 Other long term (current) drug therapy; Z72.89 Other problems related to lifestyle ==

== ENCOUNTER → 2021-01-29 | Outpatient (CLI) | payer OTHER ==
--- NOTE | 2021-02-04 11:31 | P ---
[facility] [place] [address] PROCEDURE REPORT Name: NADINE ROSS Room #: REG [place] ..#: [id number] Admission: 01/29/21 Attend Phys: Husam Bernal MD Discharge: Date of : 39 Report #: [id number] THIS REPORT FOR: cc: Isha Irvin DNP, Mary E. DNP Couchonnal, Luis F. MD ~ PROCEDURE: Implantation, explantation of an implantable loop recorder PREOPERATIVE DIAGNOSIS: Syncope. POSTOPERATIVE DIAGNOSIS: Syncope. DESCRIPTION OF PROCEDURE: The patient underwent informed consent. She was prepped and draped in a standard fashion. Incision was made after I injected lidocaine at the prior incision site. The old device was removed and then the new device was injected and a single suture was performed. There were no procedure related complications. The explanted device was a [employer] implantable loop recorder. The newly implanted device was Medtronic Reveal model number [id number], serial number [id number]. CONCLUSION: Successful removal and reimplantation of a loop recorder. <ELECTRONICALLY SIGNED> By: Husam Bernal MD 02/04/21 1131 1027 2216 Husam Bernal MD /nt
== END | disposition home or self-care (01) ==
LOC: CATH 07:01
PROVIDERS: ATTEND Internal Medicine Cardiovascular Disease
DX: R55 Syncope and collapse (principal); I25.10 Atherosclerotic heart disease of native coronary artery without angina pectoris; Z98.890 Other specified postprocedural states; Z79.899 Other long term (current) drug therapy

== ENCOUNTER → 2021-03-05 | Outpatient (CLI) | payer OTHER ==
[~2021-03-05] MED LIST changes: +ASA81BEC PO; +OMEPRAZOLE40 MG PO; +TOPROL XL50 MG PO
== END ==
LOC: LAB 05:42
PROVIDERS: ATTEND Student in an Organized Health Care Education/Training Program
DX: Z01.812 Encounter for preprocedural laboratory examination (principal); Z20.822 Contact with and (suspected) exposure to COVID-19

== ENCOUNTER → 2021-03-06 | Outpatient (CLI) | payer OTHER ==
[~2021-03-06] VITALS: Ht 160 cm; Wt 55.3 kg
--- NOTE | ~2021-03-06 | P ---
[facility] [place] [address] PROCEDURE REPORT Name: NADINE ROSS Room #: REG [place] Saleem.#: [id number] Admission: 03/06/21 Attend Phys: Donny Green Discharge: Date of : 39 Report #: [id number] THIS REPORT FOR: cc: Isha Irvin DNP, Mary E. DNP McElhinney, Christian C. MD ~ cc: AVERY Hardy DATE OF SERVICE: 03/06/2021 PROCEDURE PERFORMED: Colonoscopy with polypectomy. HISTORY OF PRESENT ILLNESS: The patient is an 80-year-old female with a history of colon polyps, large rectosigmoid polyp, sessile that was removed and recurred, status post tattoo, last biopsies from that polypectomy site in 2019 on colonoscopy at that time showed no abnormalities. DESCRIPTION OF PROCEDURE: The risks and benefits of the procedure were explained to the patient, those risks including, but not limited to bleeding, perforation and the risk of sedation. She understood these risks and gave informed consent. Sedation was given using propofol per anesthesia. Next, a digital rectal exam was initially performed was normal. Next, using a standard Olympus colonoscope, the scope was placed in the patient's anus and advanced under direct vision to the cecum. The overall prep was excellent. The cecum and ileocecal valve were normal in appearance. In the ascending colon, a 4 mm sessile polyp was noted. This was removed with cold forceps, otherwise normal. In the transverse colon, a 6 mm sessile polyp removed by snare cautery. Descending colon was normal. In the sigmoid colon, several diverticula were noted as well as a 6 mm sessile polyp also removed by snare cautery. The previous polypectomy site with tattoo was noted again in the rectosigmoid area. No obvious polyp tissue was noted. Biopsies were obtained. On retroflexion, no abnormalities were noted. The scope was then withdrawn and the procedure terminated. The patient tolerated the procedure well. IMPRESSION: 1. Small colonic polyps as described above. 2. Sigmoid diverticulosis. 3. Otherwise, normal colonoscopy. RECOMMENDATIONS: 1. Await biopsy results. 2. Repeat colonoscopy in [address] [address] PROCEDURE REPORT Name: NADINE ROSSYCE Room #: REG [facility].#: [id number] Admission: 03/06/21 Attend Phys: Donny Green Discharge: Date of : 39 Report #: [id number] Thank you for allowing me to participate in her care. By: 1118 2148 Donny Brambila MD /nt
--- NOTE | 2021-03-08 09:31 | PATH ---
[facility] [place] [address] PATHOLOGY RPT PROCEDURE Name: NADINE ROSS Room #: REG [facility] M.R.#: [id number] Admission: 03/06/21 Date of : 38 Discharge: Report #: [id number] Path Case #: [id number] [facility] Accession Number: [id number] . 01 Material submitted: . PART A: colon - TRANSVERSE COLON POLYP. Modifiers: transverse PART B: colon - ASCENDING COLON POLYP. Modifiers: ascending PART C: sigmoid colon - SIGMOID COLON POLYP PART D: rectosigmoid junction - PREVIOUS POLYPECTOMY SITE RECTAL SIGMOID COLON . 01 Clinical history: . COLONOSCOPY HISTORY OF POLYPS DIVERTICULOSIS . 02 Diagnosis: A. Transverse colon polyp, polypectomy: - Tubular adenoma. - Negative for high grade dysplasia or malignancy. . B. Ascending colon polyp, polypectomy: - Tubular adenoma. - Negative for high grade dysplasia or malignancy. . C. Sigmoid colon polyp, polypectomy: - Tubular adenoma. - Negative for high grade dysplasia or malignancy. . D. Previous polypectomy site rectosigmoid colon: - Residual tubular adenoma. - Negative for high grade dysplasia or malignancy. . (ANK:zachary; 03/07/2021) QLM 03/07/2021 [facility]6 [facility] . 02 Electronically signed: . Rossana De La Torre MD, Pathologist NPI- [id number] . 01 Gross description: . A. The specimen is received in formalin, labeled "Angolia, Nadine, transverse colon polyp". Received is a single segment of red-brown, polypoid tissue measuring 0.6 cm in maximum dimensions. The surgical margin is inked. The specimen is bisected and entirely submitted in cassette A1. . [address] [address] PATHOLOGY RPT PROCEDURE Name: NADINE ROSS LYNN Room #: REG [facility].#: [id number] Admission: 03/06/21 Date of : 39 Discharge: Report #: [id number] Path Case #: [id number] B. The specimen is received in formalin, labeled " Harvinderolia, Nadine, ascending colon polyp". Received is a single segment of pale martinez tissue measuring 0.4 cm in maximum dimensions. The specimen is entirely submitted in cassette B1. . C. The specimen is received in formalin, labeled " Angolia, Nadine, sigmoid colon polyp". Received are 2 segments of pale martinez to light brown tissue measuring 0.3 and 0.8 cm in maximum dimensions. The specimen is entirely submitted in cassette C1. . D. The specimen is received in formalin, labeled " Guilherme, Nadine, previous polypectomy site rectal sigmoid colon". Received are multiple segments of pale martinez tissue ranging in size from 0.3-0.4 cm in maximum dimensions. The specimen is entirely submitted in cassette D1. ([facility]; 03/06/2021) NRI/NRI 03/06/2021 [facility] . 02 Pathologist provided ICD-10: D12.3, D12.2, D12.5, D12.7 . 02 CPT . 881567, 814485, 409699, 756587 Specimen Comment: A courtesy copy of this report has been sent to [phone], [phone] Specimen Comment: [phone] Specimen Comment: Report sent to / DR LOPEZ Specimen Comment: A duplicate report has been generated due to demographic updates. Performed at: 01 [facility] [address] [place] [address] [id number] MD Lester Mcconnell MD Phone: [phone] Performed at: [address] [id number] MD Latoya Spangler MD Phone: [phone]
== END | disposition home or self-care (01) ==
LOC: GI 08:26
PROVIDERS: ATTEND Specialist
DX: Z12.11 Encounter for screening for malignant neoplasm of colon (principal); Z86.010 Personal history of colon polyps; D12.3 Benign neoplasm of transverse colon; D12.2 Benign neoplasm of ascending colon; D12.5 Benign neoplasm of sigmoid colon; D12.7 Benign neoplasm of rectosigmoid junction; K57.30 Diverticulosis of large intestine without perforation or abscess without bleeding; K21.9 Gastro-esophageal reflux disease without esophagitis; I10 Essential (primary) hypertension; E78.5 Hyperlipidemia, unspecified; I73.9 Peripheral vascular disease, unspecified; M81.0 Age-related osteoporosis without current pathological fracture; I25.10 Atherosclerotic heart disease of native coronary artery without angina pectoris; Z96.651 Presence of right artificial knee joint; Z85.828 Personal history of other malignant neoplasm of skin; Z98.890 Other specified postprocedural states; Z79.899 Other long term (current) drug therapy; Z98.41 Cataract extraction status, right eye; Z98.42 Cataract extraction status, left eye; Z79.82 Long term (current) use of aspirin
CPT/HCPCS: 62110; 62900

== ENCOUNTER → 2021-04-02 | Outpatient (CLI) | payer OTHER | LOC: SJCVC 13:56 | PROVIDERS: ATTEND Internal Medicine Cardiovascular Disease | DX: R55 Syncope and collapse (principal); I25.10 Atherosclerotic heart disease of native coronary artery without angina pectoris; I73.9 Peripheral vascular disease, unspecified; N20.0 Calculus of kidney; I65.29 Occlusion and stenosis of unspecified carotid artery; K21.9 Gastro-esophageal reflux disease without esophagitis; E78.00 Pure hypercholesterolemia, unspecified; I10 Essential (primary) hypertension; G47.33 Obstructive sleep apnea (adult) (pediatric); M19.90 Unspecified osteoarthritis, unspecified site; D64.9 Anemia, unspecified; I47.1 Supraventricular tachycardia; K44.9 Diaphragmatic hernia without obstruction or gangrene; Z79.82 Long term (current) use of aspirin; Z79.899 Other long term (current) drug therapy; Z72.89 Other problems related to lifestyle ==